=== PATIENT | male | born 1960 | race Caucasian/White ===

== ENCOUNTER 2021-10-18 00:38 | Emergency (ER) | payer OTHER, BC, SELFPAY ==
--- NOTE | ~2021-10-18 | CT_ITS ---
EXAMINATION: CT abdomen pelvis wo con DATE: 10/18/2021 01:24 INDICATION: Nausea and vomiting, right upper quadrant pain TECHNIQUE: Computed tomography (CT) of the abdomen and pelvis was performed without intravenous contr ast. The dose-length product (DLP) was 1340.86 mGy-cm. Automated exposure control and iterative recon struction technique were employed. COMPARISON: None FINDINGS: Minimal dependent atelectasis is present in the lung bases. The heart size is normal. Cysts of the liver measure up to 1.2 cm on the right hepatic lobe. The spleen, pancreas, and adrenal gland s are normal. Stones are present in the nondistended gallbladder. There is a 1.5 cm cyst of the left kidney. The right kidney is unremarkable. No pathologically enlarged abdominal lymph nodes are identi fied. There is calcified atherosclerosis of the aorta and many of the other arteries. The appendix me asures up to 8 mm but is gas-filled and its most dilated portion. No signs of appendicitis are presen t. There are changes of prostatectomy and pelvic lymph node dissection. A 5.4 cm cystic lesion is pre sent in the right pelvis which could reflect postoperative seroma or lymphangioma. There is an age-in determinate L1 compression fracture. Changes of left hip arthroplasty are noted. IMPRESSION: 1. Cholelithiasis without evidence of cholecystitis. Reviewed, dictated and finalized at location [facility]. [facility]
[2021-10-18 00:43] VITALS: BP 192/96; PULSE 72; RESP 18; TEMP 36.6; O2SAT 100
--- NOTE | 2021-10-18 00:53 | ED.GENADULT ---
HPI - General Adult General Chief complaint: Nausea/Vomiting/Diarrhea Stated complaint: n/v, headache, abd pain Time Seen by Provider: 10/18/21 00:47 History of Present Illness HPI narrative: Patient 61-year-old gentleman who presents the emergency department with chief complaint of nausea vomiting headache and right upper quadrant pain. Patient reports that started having discomfort today and reports that he has not been able to get comfortable. Patient states that he started having a headache the states that this happened after he started getting nauseated and had multiple episodes of vomiting. The patient reports fluids down denies diarrhea reports has not had a bowel movement today. The patient does report that he is passing gas. The patient reports fairly recently he is passed a kidney stone. Patient denies fever patient does report that he is been vaccinated for Covid and had Covid twice. Related Data Allergies Allergy/AdvReac Type Severity Reaction Status Date / Time Sulfa (Sulfonamide Allergy Intermediate Rash Verified 10/18/21 02:24 Antibiotics) naproxen AdvReac Gastrointestinal Verified 10/18/21 02:24 Upset tramadol [From Ultram] AdvReac Gastrointestinal Verified 10/18/21 02:24 Upset Review of Systems Review of Systems: A 10 system review of systems was completed on the patient and is negative except for what is stated in the HPI. Nursing and ancillary documentation was reviewed. Exam Narrative: GENERAL: Well-appearing, well-nourished, and in no acute distress. HEAD: Normocephalic, atraumatic. EYES: PERRLA and EOMI. ENT: Nares clear, no rhinorrhea or epistaxis. Mucous membranes moist. NECK: Supple. CHEST: Clear to auscultation. No respiratory distress. HEART: Regular rate and rhythm. No murmur heard. Normal peripheral pulses. ABDOMEN: Soft, nontender, nondistended, normal active bowel sounds. EXTREMITIES: Normal range of motion. No edema. SKIN: Warm, dry, no rash. NEURO: No focal deficits. Alert and oriented x3. PSYCH: Normal mood and affect. Course Course Emergency Course: CT scan showed no evidence of acute abnormalities there was some evidence of constipation versus cholelithiasis without cholecystitis there also is a cystic structure in the right pelvic sidewall that shows no evidence of aggressive features. The patient is followed by urology at the [facility] for prostate cancer. Vital Signs Vital signs: Vital Signs Temperature 36.6 C 10/18/21 00:43 Pulse Rate 72 10/18/21 00:43 Respiratory Rate 18 10/18/21 00:43 Blood Pressure 192/96 H 10/18/21 00:43 Pulse Oximetry 100 10/18/21 00:43 Temperature 36.6 C 10/18/21 00:43 Pulse Rate 72 10/18/21 00:43 Respiratory Rate 18 10/18/21 00:43 Blood Pressure 192/96 H 10/18/21 00:43 Pulse Oximetry 100 10/18/21 00:43 Medical Decision Making Vital Signs Vital Signs: Vital Signs Temperature 36.6 C 10/18/21 00:43 Pulse Rate 72 10/18/21 00:43 Respiratory Rate 18 10/18/21 00:43 Blood Pressure 192/96 H 10/18/21 00:43 Pulse Oximetry 100 10/18/21 00:43 Temperature 36.6 C 10/18/21 00:43 Pulse Rate 72 10/18/21 00:43 Respiratory Rate 18 10/18/21 00:43 Blood Pressure 192/96 H 10/18/21 00:43 Pulse Oximetry 100 10/18/21 00:43 Lab Data Result diagrams: 10/18/21 01:05 10/18/21 01:05 Labs: Lab Results 10/18/21 10/18/21 10/18/21 Range/Units 01:05 01:05 01:05 WBC 5.7 (4.5-10.0) K/mm3 RBC 4.25 L (4.6-6.20) M/mm3 Hgb 13.0 L (14.0-18.0) g/dL Hct 36.6 L (42.0-52.0) % MCV 86.1 (80-100) fl MCH 30.6 (26-34) pg MCHC 35.5 (32-36) g/dl RDW 12.6 (11.5-14.5) % Plt Count 192 (150-375) k/mm3 MPV 9.7 (7.4-10.4) fl Immature Gran % (Auto) 0.7 H (0-0.5) % Neut % (Auto) 73.9 H (45.5-73.1) % Lymph % (Auto) 12.5 L (18.3-44.2) % [place] % (Auto) 10.3 H (2.6-8.5) % Eos % (Auto) 2.1 (0-4.4) % Baso % (A
[2021-10-18] MEDS: SODIUM CHLORIDE 0.9% IV 1,000 ML 999 ML IV CONT (01:03)
[2021-10-18] MEDS: diphenhydrAMINE HCl INJ 50 MG/ML VIAL IV PUSH (01:03)
[2021-10-18] MEDS: PROCHLORPERAZINE EDISYLATE 10 MG/2 ML VIAL IV PUSH (01:03)
[2021-10-18 01:14] LABS: Basophils Percent Auto 0.5 % (0.2-1.2); Eosinophils Absolute Auto 0.1 K/mm3 (0-0.3); Eosinophils Percent Auto 2.1 % (0-4.4); Hematocrit 36.6 % (42.0-52.0); Immature Granulocyte Absolute 0.04 K/mm3 (0.00-0.031); Immature Granulocyte Percent A 0.7 % (0-0.5); Lymphocytes Absolute Auto 0.72 K/mm3 (0.9-3.2); Lymphocytes Percent Auto 12.5 % (18.3-44.2); Mean Corpuscular HGB Conc 35.5 g/dl (32-36); Mean Corpuscular Hemoglobin 30.6 pg (26-34); Mean Corpuscular Volume 86.1 fl (80-100); Mean Platelet Volume 9.7 fl (7.4-10.4); Monocytes Absolute Auto 0.6 K/mm3 (0.1-0.6); Monocytes Percent Auto 10.3 % (2.6-8.5); Neutrophils Absolute Auto 4.2 K/mm3 (1.3-6.7); Neutrophils Percent Auto 73.9 % (45.5-73.1); Platelet Count Result 192 k/mm3 (150-375); Red Blood Count 4.25 M/mm3 (4.6-6.20); Red Cell Distribution Width 12.6 % (11.5-14.5); White Blood Count 5.7 K/mm3 (4.5-10.0)
[2021-10-18 01:24] LABS: Lactic Acid Reflex 0.8 mmol/L (0.7-2.1)
[2021-10-18 01:25] LABS: Alanine Aminotransferase 21 U/L (4-50); Albumin Level 4.3 g/dL (3.5-5.1); Alkaline Phosphatase 80 U/L (38-126); Anion Gap 9 mmol/L (8-16); Aspartate Amino Transferase 26 U/L (17-59); Bilirubin,Total 0.4 mg/dL (0.2-1.3); Blood Urea Nitrogen 19 mg/dL (9-20); Calcium 8.9 mg/dL (8.4-10.2); Carbon Dioxide 24 mmol/L (22-30); Chloride 104 mmol/L (98-107); Estimated CRCL calculation 102 ml/min; Estimated Glomerular Filt Rate > 60; Glucose 145 mg/dL (65-110); Lipase 79 U/L (23-300); Potassium 3.2 mmol/L (3.4-5.0); Sodium 137 mmol/L (137-145)
[2021-10-18 01:42] LABS: Add Urine Microscopic? NO; Appearance Urine Clear (Clear); Bilirubin Urine Negative (Negative); Blood Urine Negative (Negative); Color Urine Straw (Yellow); Glucose Urine UA Negative (Negative); Ketones Urine Negative (Negative); Leukocyte Esterase Ur Negative LEU/UL (Negative); Nitrate Urine Negative (Negative); Protein Urine Negative (Negative); Specific Grav Ur 1.014 (1.001-1.035); Urobilinogen Urine Negative mg/dL (<2.0)
[2021-10-18] MEDS: LORazepam INJ (*CRX) 2 MG/ML VIAL 1 MG IV PUSH (02:31)
[2021-10-18 03:32] VITALS: BP 147/89; PULSE 80; RESP 18; O2SAT 100
== END 2021-10-18 03:34 | disposition home or self-care (01) ==
PROVIDERS: Emergency Provider Emergency Medicine
DX: R11.2 Nausea with vomiting, unspecified (principal); K59.00 Constipation, unspecified
CPT/HCPCS: 36415; 74176; 80053; 81003; 83605; 83690; 85025; 96361; 96374; 96375; 99284; J0780; J1200; J2060; J7030